=== PATIENT | female | born 1955 | race Hispanic/Latino ===

== ENCOUNTER → 2022-05-15 | Outpatient (CLI) | payer OTHER ==
[~2022-05-15] MED LIST: CYCL5TAB PO; LORA0.5T2 PO; MELO-106 PO; ROPINIROLE PO; VALS160T29 PO
== END | disposition home or self-care (01) ==
LOC: DTH 09:22
PROVIDERS: ATTEND Surgery
DX: Z71.3 Dietary counseling and surveillance (principal); E66.01 Morbid (severe) obesity due to excess calories; I10 Essential (primary) hypertension; K21.9 Gastro-esophageal reflux disease without esophagitis; G47.33 Obstructive sleep apnea (adult) (pediatric); M19.91 Primary osteoarthritis, unspecified site; Z68.42 Body mass index [BMI] 45.0-49.9, adult
CPT/HCPCS: 97802

== ENCOUNTER → 2022-08-07 | Outpatient (CLI) | payer OTHER | END | disposition home or self-care (01) | LOC: DTH 12:12 | PROVIDERS: ATTEND Surgery | DX: Z71.3 Dietary counseling and surveillance (principal); E66.01 Morbid (severe) obesity due to excess calories; I10 Essential (primary) hypertension; M19.91 Primary osteoarthritis, unspecified site; K21.9 Gastro-esophageal reflux disease without esophagitis; G47.33 Obstructive sleep apnea (adult) (pediatric); Z68.42 Body mass index [BMI] 45.0-49.9, adult | CPT/HCPCS: 97803 ==

== ENCOUNTER → 2022-12-03 | Outpatient (CLI) | payer OTHER | END | disposition home or self-care (01) | LOC: OIH 10:04 | PROVIDERS: ATTEND Internal Medicine Cardiovascular Disease | DX: I51.7 Cardiomegaly (principal); R06.01 Orthopnea | CPT/HCPCS: 71046 ==

== ENCOUNTER 2023-12-25 15:18 | Emergency (ER) | payer OTHER ==
[~2023-12-25] VITALS: Ht 154.9 cm; Wt 105.2 kg
[2023-12-25 17:03] LABS: BASOPHILS # (AUTO) 0.01 K/uL (0.00-0.20); BASOPHILS % (AUTO) 0.2 % (0.0-5.0); EOSINOPHILS # (AUTO) 0.05 K/uL (0.00-0.70); EOSINOPHILS % (AUTO) 0.8 % (0.0-8.0); HEMATOCRIT 38.8 % (36-48); IMMATURE GRANULOCYTE ABSOLUTE 0.02 K/uL (0-1); LYMPHOCYTES # (AUTO) 1.1 K/uL (1.0-4.8); MEAN CORPUSCULAR HEMOGLOBIN 28.2 pg (27.0-33.0); MEAN CORPUSCULAR HGB CONC 32.2 g/dL (32.0-36.0); MEAN CORPUSCULAR VOLUME 87.4 fL (79-99); MONOCYTES # (AUTO) 0.5 K/uL (0.1-1.0); MONOCYTES % (AUTO) 8.1 % (3.0-13.0); NEUTROPHILS # (AUTO) 4.3 K/uL (1.8-7.7); NEUTROPHILS % (AUTO) 72.6 % (40.0-77.0); PLATELET COUNT (AUTO) 186 K/uL (130-400); RED BLOOD CELL COUNT(AUTO) 4.44 MIL/uL (4.00-5.50); RED CELL DISTRIBUTION WIDTH 14.5 % (11.0-15.5)
[2023-12-25 17:10] LABS: CREATININE 1.1 mg/dL (0.5-1.0)
[2023-12-25] MEDS ORDERED: ONDA-243 PO (19:26)
[2023-12-25] MEDS ORDERED: IBUP-2070 PO (19:26)
[2023-12-25 19:35] VITALS: BP 155/95; PULSE 95; RESP 20; O2SAT 98
== END 2023-12-25 19:34 | disposition home or self-care (01) ==
LOC: EDH 15:18
DX: G89.29 Other chronic pain (principal); M54.50 Low back pain, unspecified; R51.9 Headache, unspecified; R42 Dizziness and giddiness; F41.9 Anxiety disorder, unspecified; I10 Essential (primary) hypertension; H54.8 Legal blindness, as defined in USA; M19.90 Unspecified osteoarthritis, unspecified site; Z79.899 Other long term (current) drug therapy; Z90.49 Acquired absence of other specified parts of digestive tract; Z90.710 Acquired absence of both cervix and uterus; Z96.653 Presence of artificial knee joint, bilateral
CPT/HCPCS: 36415; 70450; 80048; 85025; 93005

== ENCOUNTER 2025-01-19 16:22 | Emergency (ER) | payer OTHER, MEDICARE ==
[~2025-01-19] VITALS: Ht 154.9 cm; Wt 100.2 kg
[~2025-01-19 16:22] MED LIST changes: -CYCL5TAB PO; +CYCL5TAB3 PO; +IBUP-1492 PO; +ONDA-243 PO
--- NOTE | 2025-01-19 16:40 | ERN ---
General Chief Complaint: Shortness of Breath Stated Complaint: SOB , UNCONTROLLED BP Time Seen by MD: 16:25 Source: patient History of Present Illness Initial Comments Patient is a 69-year-old female coming in with multiple complaints. Per patient she states that her blood pressure has been uncontrolled for two weeks. She states that the blood pressure goes up and down. She also states that she has been having some mild chest pressure for a couple of days. 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 Ibuprofen (Ibuprofen) 600 Mg Tablet, 600 MG PO Q6H PRN for PAIN, #1 TAB 0 Refills Prov:ANGELA KIRAN NP 12/25/23 Reported Medications [Ropinirole] No Conflict Check, PO HS 10/18/16 Lorazepam (Lorazepam) 0.5 Mg Tablet, 0.5 MG PO DAILY, TAB 10/18/16 Cyclobenzaprine HCl (Cyclobenzaprine HCl) 5 Mg Tablet, 5 MG PO DAILY, TAB 10/18/16 Meloxicam (Meloxicam) 7.5 Mg Tablet, 7.5 MG PO BID, TAB 10/18/16 Valsartan (Valsartan) 160 Mg Tablet, 160 MG PO BID, TAB 10/18/16 Past Medical History Past Medical History: Anxiety, Arthritis, Hypertension Medical History Other: LEGALLY BLIND, CHRONIC BACK PAIN Past Surgical History: Hysterectomy, Cholecystectomy Surgical History Other: BILATERAL KNEE REPLACEMENT, CATARACT MAGED EYES, THROAT HERNIA ROS Dictation CONSTITUTIONAL: No chills, no fever, no weakness, no diaphoresis, no malaise. HEAD/FACE: No signs of trauma. EENT: No eye pain, no blurred vision, no tearing, no double vision, no ear pain, no ear discharge, no nose pain, no nasal congestion, no throat pain, no throat swelling, no mouth pain. RESPIRATORY: No cough, no orthopnea, no SOB, no stridor, no wheezing. CARDIOVASCULAR: No chest pain, no edema, no palpitations, no syncope. GASTROINTESTINAL/ABDOMINAL: No abdominal pain, no constipation, no diarrhea, no nausea, no vomiting. GENITOURINARY: No abnormal discharge, no dysuria, no frequent urination, no he maturia. No complaints of pain in the genitals. MUSCULOSKELETAL: No back pain, no gout, no joint pain, no joint swelling, no m uscle pain, no muscle stiffness, no neck pain. INTEGUMENTARY: No change in color, no change in hair/nails, no dryness, no lesi on, no lumps, no rash. NEUROLOGICAL/PSYCH: No anxiety, not depressed, no emotional problem, no headache, no numbness, no pre-existing deficit, no history of seizures, no tremors, no weakness. HEMATOLOGIC/LYMPHATIC: Not anemic, no history of blood clots, no apparent bleeding, no bruising, glands not swollen. All Systems Negative, Except as Noted. Physical Exam Physical Exam Dictation VITAL SIGNS: Reviewed. GENERAL APPEARANCE: Alert, oriented x3, no acute distress, obese. HEAD AND FACE: Non-traumatic. EYES: PERRL, pink conjunctivas, eyelid no trauma, anterior chamber clear. EARS: Pinnas intact and no signs of trauma or erythema. Ear canals clear and no discharge. TMs no erythema. NOSE: No discharge, no bleeding. OROPHARYNX: Mouth normal, teeth no caries, tongue pink. Pharynx clear, no erythema. Tonsils no exudates, no abscesses noted. Mucous membrane moist. NECK: Supple, non-tender, no thyromegaly, no masses, no JVD, no bruits. BREAST: Deferred. CHEST: No tenderness, no crepitus, no paradoxical movement, no retractions. LUNGS: Clear, well-ventilated, symmetric, no rales, no wheezing, no rhonchi, no stridor, good breath sounds bilaterally. HEART: Regular rate, regular rhythm, no murmur, no gallops. VASCULAR: No peripheral edema. ABDOMEN: Soft, positive bowel sounds, nondistended, no guarding, nontender, no rebound, no masses no hepatomegaly, no splenomegaly, no Evans's sign, no hernias. RECTAL: Deferred. GENITAL: Deferred. NEUROLOGICAL: Normal speech, gross motor function intact, gross sensory function intact. MUSCULOSKELETAL: Neck nontender, full range of motion, back nontender, full range of motion. EXTREMITIES: Nontender, full range of motion. SKIN: Color pink, dry, no turgor, no rash, no lacerations, no abrasions, no contusions. LYMPHATICS: Deferred. Results Laboratory and Microbiology Lab and Micro Result Laboratory Tests Test 01/19/25 16:40 01/19/25 18:51 White Blood Count 8.2 K/uL (4.8-10.8) Red Blood Count 3.59 MIL/uL (4.00-5.50) L Hemoglobin 10.2 g/dL (12.0-16.0) L Hematocrit 32.1 % (36-48) L Mean Corpuscular Volume 89.4 fL (79-99) Mean Corpuscular Hemoglobin 28.4 pg (27.0-33.0) Mean Corpuscular Hemoglobin Concent 31.8 g/dL (32.0-36.0) L Red Cell Distribution Width 13.6 % (11.0-15.5) Platelet Count 206 K/uL (130-400) Mean Platelet Volume 11.7 fL (7.5-10.5) H Immature Granulocyte % (Auto) 0.2 % (0-1) Neutrophils (%) (Auto) 72.3 % (40.0-77.0) Lymphocytes (%) (Auto) 19.7 % (21.0-51.0) L Monocytes (%) (Auto) 5.6 % (3.0-13.0) Eosinophils (%) (Auto) 2.0 % (0.0-8.0) Basophils (%) (Auto) 0.2 % (0.0-5.0) Neutrophils # (Auto) 5.9 K/uL (1.8-7.7) Lymphocytes # (Auto) 1.6 K/uL (1.0-4.8) Monocytes # (Auto) 0.5 K/uL (0.1-1.0) Eosinophils # (Auto) 0.16 K/uL (0.00-0.70) Basophils # (Auto) 0.02 K/uL (0.00-0.20) Absolute Immature Granulocyte (auto 0.02 K/uL (0-1) Nucleated Red Blood Cells 0.0 % (0.0-0.19) Sodium Level 141 mmol/L (136-145) Potassium Level 4.5 mmol/L (3.5-5.1) Chloride Level 103 mmol/L (101-111) Carbon Dioxide Level 31 mmol/L (21-32) Blood Urea Nitrogen 29 mg/dL (7-18) H Creatinine 1.5 mg/dL (0.5-1.0) H Glomerular Filtration Rate Calc 38 mL/min (>90) Random Glucose 103 mg/dL (70-105) Total Calcium 8.6 mg/dL (8.5-10.1) Magnesium Level 1.90 mg/dL (1.80-2.40) Total Creatine Kinase 59 U/L (21-232) Troponin I High Sensitivity 47 ng/L (4-50) 48 ng/L (4-50) Labs Reviewed?: Yes EKG/XRAY/US/CT/MRI EKG Comment 01/19/2025 time 4:30 p.m. Ventricular rate 74 Sinus rhythm DE [address] wave elevation or depression X-RAY Comment [address] [address] IMAGING REPORT Signed PATIENT: SANTO NOBLES MR#: [id number] : 1955 SEX: F AGE: 69 LOCATION: [facility] ORDER 29 STATUS: REG REPORT#: [id number] SERVICE 163 REASON: cp ORDERING PHYSICIAN: FRANCIS CASTREJON MD PROCEDURE: CXR1VW - CHEST 1VW EXAM: XR Chest, 1 View. CLINICAL HISTORY: Chest pain. COMPARISON: 12/03/2022. FINDINGS: LUNGS: Patchy infiltrates in the lower lobes, suggesting early pneumonia. These findings are similar compared to the prior study. Mild peribronchial thickening, with questionable bronchitis, also similar to the prior study. PLEURAL SPACES: Small bilateral pleural effusions. These findings are similar compared to the prior study. HEART: Mild cardiomegaly. This finding is similar compared to the prior study. BONES: No acute osseous abnormality. IMPRESSION: 1. Small bilateral effusions and patchy infiltrates in the lower lobes, suggesting early pneumonia, similar to the prior study. 2. Mild cardiomegaly and mild peribronchial thickening with questionable bronchitis, similar to the prior study. /[place] DICTATED BY: DAGO WILSON MD DATE: 01/19/251850 ELECTRONICALLY SIGNED BY: DAGO WILSON MD DATE: 01/19/251850 MDM MDM: Differential diagnosis: Chest pain Rationale: Tests considered and ordered secondary to shared decision making include: Previous outside records reviewed: Old ER visits. Risk of complication and/or morbidity or mortality of patient management: None Medications-Per medication reconciliation Need for hospitalization: Patient does not meet criteria for hospitalization. Need for emergency major/minor surgery: No There are no social concerns with this patient. Prescription drug management Prescriptions will include symptomatic care Patient's prior external medical records from other ER visits were reviewed by me as indicated. Prior testing and results from previous visits were reviewed. Prior tests were taken into account with medical decision making and resource utilization, independent historian/historians were used to obtain complete medical history. I independently interpreted the test that were performed, results were reviewed by me and considered findings on radiology if ordered. Medical management and examination interpretation discussions were had by me with other qualified healthcare professionals as indicated for the patient's care. ED Course Orders Procedure Category Date Status Time Cbc With Differential LAB 01/19/25 Complete 16:30 Chest 1vw RAD 01/19/25 Resulted 16:30 12 Lead Ekg Tracing- EKG 01/19/25 Logged Technical 16:30 Magnesium LAB 01/19/25 Complete 16:30 Creatine Kinase, Total LAB 01/19/25 Complete 16:30 Troponin I High LAB 01/19/25 Complete Sensitivity 16:30 Urinalysis Profile LAB 01/19/25 Logged 16:30 Basic Metabolic Panel LAB 01/19/25 Complete 16:30 Troponin I High LAB 01/19/25 Complete Sensitivity 18:40 Vital Signs Date Time Temp Pulse Resp B/P (MAP) Pulse Ox O2 Delivery O2 Flow Rate FiO2 01/19/25 19:37 98.2 60 20 149/79 97 Room Air* 0 01/19/25 18:22 67 21 155/61 96 Room Air* 0 01/19/25 17:21 68 17 147/70 99 Room Air* 0 01/19/25 16:23 98.4 74 16 199/69 95 Room Air 0 DX & DISP Disposition: Discharge Departure Impression: Primary Impression: Chest pain Condition: Stable Referrals: CRESCENCIO GRAVES MD (PCP) FRANCIS CASTREJON MD Jan 19, 2025 16:40 KATALINA GUIDO MD Jan 19, 2025 20:20
[2025-01-19 16:49] LABS: IMMATURE GRANULOCYTE ABSOLUTE 0.02 K/uL (0-1); NUCLEATED RED BLOOD CELLS 0.0 % (0.0-0.19); PLATELET COUNT (AUTO) 206 K/uL (130-400); RED BLOOD CELL COUNT(AUTO) 3.59 MIL/uL (4.00-5.50); RED CELL DISTRIBUTION WIDTH 13.6 % (11.0-15.5); WHITE BLOOD COUNT (AUTO) 8.2 K/uL (4.8-10.8)
[2025-01-19 17:01] LABS: CREATININE 1.5 mg/dL (0.5-1.0); GLOMERULAR FILTR. RATE CALC 38.0 mL/min (>90); GLUCOSE,RANDOM 103.0 mg/dL (70-105); SODIUM SERUM 141.0 mmol/L (136-145); UREA NITROGEN, BLOOD 29.0 mg/dL (7-18)
[2025-01-19 17:11] LABS: CREATINE KINASE, TOTAL 59.0 U/L (21-232)
--- NOTE | 2025-01-19 17:51 | HMCIMG ---
EXAM: XR Chest, 1 View. CLINICAL HISTORY: Chest pain. COMPARISON: 12/03/2022. FINDINGS: LUNGS: Patchy infiltrates in the lower lobes, suggesting early pneumonia. These findings are similar compared to the prior study. Mild peribronchial thickening, with questionable bronchitis, also similar to the prior study. PLEURAL SPACES: Small bilateral pleural effusions. These findings are similar compared to the prior study. HEART: Mild cardiomegaly. This finding is similar compared to the prior study. BONES: No acute osseous abnormality. IMPRESSION: 1. Small bilateral effusions and patchy infiltrates in the lower lobes, suggesting early pneumonia, similar to the prior study. 2. Mild cardiomegaly and mild peribronchial thickening with questionable bronchitis, similar to the prior study. /[place]
[2025-01-19 19:37] VITALS: BP 149/79; PULSE 60; RESP 20; TEMP 98.3; O2SAT 97
--- NOTE | 2025-01-20 07:14 | EKG ---
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
== END 2025-01-19 20:49 | disposition home or self-care (01) ==
LOC: EDH 16:22
DX: R07.89 Other chest pain (principal); F41.9 Anxiety disorder, unspecified; M19.90 Unspecified osteoarthritis, unspecified site; I10 Essential (primary) hypertension; Z79.899 Other long term (current) drug therapy; Z90.49 Acquired absence of other specified parts of digestive tract; Z90.710 Acquired absence of both cervix and uterus; Z96.653 Presence of artificial knee joint, bilateral
CPT/HCPCS: 36415; 71045; 80048; 82550; 83735; 84484; 85025; 93005; 99285